=== PATIENT | female | born 1940 | race Caucasian/White ===

== ENCOUNTER → 2020-05-27 10:59 | Outpatient (CLI) | payer MEDICARE, SELFPAY ==
--- NOTE | ~2020-05-27 | MM_ITS ---
EXAMINATION: MM screening [facility] BI w kris HISTORY: Screening mammogram TECHNIQUE: Craniocaudal and mediolateral oblique 3-D tomosynthesis images were obtained and synthetic 2-D images were generated. CAD analysis was submitted and interpreted. COMPARISON: 10/31/2018, 10/09/2017, 10/05/2016 BREAST PARENCHYMAL COMPOSITION: The breasts are heterogeneously dense, which may obscure small masses . FINDINGS: There is no evidence of suspicious mass, calcification, or architectural distortion to sugg est malignancy in either breast. There has been no suspicious interval change. IMPRESSION: 1. No mammographic evidence of malignancy. 2. Recommend routine screening mammography in one year. BI-RADS Category 1: Negative Reviewed, dictated and finalized at location A.
== END ==
PROVIDERS: PCP Family Medicine; Visit Provider Family Medicine
DX: Z12.31 Encounter for screening mammogram for malignant neoplasm of breast (principal)
CPT/HCPCS: 77063; 77067

== ENCOUNTER 2020-07-02 11:50 | Emergency (ER) | payer MEDICARE, SELFPAY ==
[2020-07-02 11:59] VITALS: BP 151/80; PULSE 72; RESP 20; TEMP 36.8; O2SAT 98
--- NOTE | 2020-07-02 12:02 | ED.URI ---
HPI - URI/Sore Throat General Chief Complaint: Upper Respiratory Infection Stated Complaint: sinus issues Time Seen by Provider: 07/02/20 12:03 Source: patient and RN notes reviewed Mode of arrival: ambulatory Limitations: no limitations History of Present Illness HPI Narrative: 80-year-old female who presents to [facility] with complaints of sinus congestion and drainage for one week duration, has been taking Alida D for her symptoms with no improvement,also has had cold sores to her bottle lip for the past 3-4 days. She states that she woke up this morning with right ear pain which she rates as 4/10 constant ache.Patient denies any drainage from her ear or acute changes in hearing, tragal tenderness present. Patient has history of seasonal allergies. MD elicited complaint: rhinorrhea, nasal congestion and other (ear pain, cold sores) Pertinent past history: seasonal allergies Onset (ago): week(s) (1week sinus symptoms,3-4 days cold sores ,one day right ear pain) Consistency: progressively worsening Severity: moderate Pain scale (0-10): 4 Description of mucous: clear Able to tolerate fluids by mouth: Yes Exacerbating factors: nothing Relieving factors: nothing Associated symptoms: rhinorrhea, nasal congestion, ear pain and other Treatments prior to arrival: cold medicine and other (topical lip treatment) Related Data Home Medications Medication Instructions Recorded Confirmed fexofenadine-pseudoephedrine 1 tablet PO QAM 07/02/20 07/02/20 [Alida-D 24 Hour] Allergies Allergy/AdvReac Type Severity Reaction Status Date / Time No Known Allergies Allergy Verified 07/02/20 12:04 Review of Systems Review of Systems: Narrative: CONSTITUTIONAL: Denies fever, chills, or sweats. EYES: Denies visual changes, redness, or discharge. ENT: positive rhinorrhea, congestion, no sore throat, right otalgia, cold sores bottom lip CARDIOVASCULAR: Denies chest pain, palpitations, or edema. RESPIRATORY: Denies cough or dyspnea. GASTROINTESTINAL: Denies abdominal pain, nausea, vomiting, or diarrhea. GENITOURINARY: Denies dysuria or hematuria. SKIN: Denies rash or itching. MUSCULOSKELETAL: Denies back pain, joint pain, or myalgia. NEUROLOGIC: Denies headache, numbness, or weakness. PSYCHIATRIC: Denies anxiety or depression. All systems reviewed & are unremarkable except as noted in HPI and below PMFSH Past Medical History Medical History Allergies Diverticulosis Dyslipidemia Elevated cholesterol Hypothyroidism (acquired) Osteopenia Pre-diabetes Unspecified osteoarthritis, unspecified site Vitamin D deficiency Surgical History Surgical History H/O total hysterectomy age 36 History of knee replacement (~2017) right [place] teeth extracted Family History Family History Mother Leukemia Sibling Brain tumor Social History Social History Smoking status: Never smoker Second hand tobacco smoke exposure: No Alcohol intake: current Substance use: never Substance use type: does not use Gender identity (if verbalized by the patient): Female Comments At time of signature, agree with nursing past medical, surgical, social and family history. There is no relevant family history pertinent to the presenting complaint Exam Narrative: Exam Narrative: GENERAL: Well-appearing, well-nourished, and in no acute distress. HEAD: Normocephalic, atraumatic. EYES: PERRLA and EOMI. ENT: Nares red, clear rhinorrhea no epistaxis. Mucous membranes moist. Right TM red with bulging noted no drainage, left TM normal with adequate drainage Throat has mild redness with post nasal drainage noted, no exudates or tonsil enlargement. NECK: Supple.no lymphadenopathy CHEST: Clear to auscultation. No respiratory distress.SAO2
== END 2020-07-02 12:41 | disposition home or self-care (01) ==
PROVIDERS: Emergency Provider Registered Nurse; PCP Family Medicine
DX: B00.1 Herpesviral vesicular dermatitis (principal); H65.01 Acute serous otitis media, right ear; J06.9 Acute upper respiratory infection, unspecified; E78.5 Hyperlipidemia, unspecified; E78.00 Pure hypercholesterolemia, unspecified; M85.80 Other specified disorders of bone density and structure, unspecified site; R73.03 Prediabetes; M19.90 Unspecified osteoarthritis, unspecified site; Z96.651 Presence of right artificial knee joint
CPT/HCPCS: 99213; G0463

== ENCOUNTER 2020-07-05 11:46 | Emergency (ER) | payer MEDICARE, SELFPAY ==
--- NOTE | 2020-07-05 11:50 | ED.GENADULT ---
HPI - General Adult General Chief complaint: Skin/Abscess/Foreign Body Stated complaint: Rash Time Seen by Provider: 07/05/20 11:49 Source: patient Mode of arrival: ambulatory Limitations: no limitations History of Present Illness HPI narrative: 80-year-old female patient presents to the [facility] with complaints of a rash to the right side of her face. Patient states she was seen here 3 days ago with complaints of right-sided ear pain as well as a rash that started to her bottom lip. Patient was treated for an ear infection with antibiotics as well as antivirals for cold sores to her lip. Patient states that the pain in her ear is gone since starting the antibiotics and antivirals. Patient denies any pain to the side of the face but states that the rash that looks similar to her cold sores on her lip has spread to the right side of her face. Denies any vision changes. Denies any rash around the eye. Denies any rash to the tip of the nose that she is aware of. Patient states she has had shingles before in the past but was under her left breast the last time. Patient states she has been nervous and anxious recently. Patient denies any fevers, body aches or chills. Denies any chest pain or shortness of breath Related Data Home Medications Medication Instructions Recorded Confirmed fexofenadine-pseudoephedrine 1 tablet PO QAM 07/02/20 07/02/20 [Alida-D 24 Hour] Allergies Allergy/AdvReac Type Severity Reaction Status Date / Time No Known Allergies Allergy Verified 07/02/20 12:04 Review of Systems Review of Systems: Narrative: CONSTITUTIONAL: Denies fever, chills, or sweats. EYES: Denies visual changes, redness, or discharge. ENT: Denies rhinorrhea, congestion, sore throat, or otalgia. CARDIOVASCULAR: Denies chest pain, palpitations, or edema. RESPIRATORY: Denies cough or dyspnea. GASTROINTESTINAL: Denies abdominal pain, nausea, vomiting, or diarrhea. GENITOURINARY: Denies dysuria or hematuria. SKIN: Positive rash to right side of face MUSCULOSKELETAL: Denies back pain, joint pain, or myalgia. NEUROLOGIC: Denies headache, numbness, or weakness. PSYCHIATRIC: Denies anxiety or depression. [facility] Past Medical History Medical History Allergies Diverticulosis Dyslipidemia Elevated cholesterol Hypothyroidism (acquired) Osteopenia Pre-diabetes Unspecified osteoarthritis, unspecified site Vitamin D deficiency Surgical History Surgical History H/O total hysterectomy age 36 History of knee replacement (~2017) right [place] teeth extracted Family History Family History Mother Leukemia Sibling Brain tumor Social History Social History Smoking status: Never smoker Second hand tobacco smoke exposure: No Alcohol intake: current Substance use: never Substance use type: does not use Gender identity (if verbalized by the patient): Female Comments At the time of my signature I agree with nursing past medical history, surgical, social, and family history. There is no relevant family history pertinent to the presenting complaint. Exam Narrative: Exam Narrative: GENERAL: Well-appearing, well-nourished, and in no acute distress. HEAD: Normocephalic, atraumatic. EYES: PERRLA and EOMI. ENT: Nares clear, no rhinorrhea or epistaxis. Mucous membranes moist. Posterior pharynx with no erythema, tonsil enlargement, exudates or lesions present. There is an apophcus ulcer noted to the right side of the posterior pharynx. Bilateral TMs are clear no erythema or foreign bodies in the canal. NECK: Supple. No lymphadenopathy CHEST: Clear to auscultation. No respiratory distress. HEART: Regular rate and rhythm. No murmur heard. Normal peripheral pulses. ABDOMEN: Soft, nontender, nondistended, no
[2020-07-05 12:01] VITALS: BP 162/95; PULSE 116; RESP 20; TEMP 36.6; O2SAT 98
== END 2020-07-05 12:22 | disposition home or self-care (01) ==
PROVIDERS: Emergency Provider Nurse Practitioner Family; PCP Family Medicine
DX: B02.9 Zoster without complications (principal); E78.5 Hyperlipidemia, unspecified; E78.00 Pure hypercholesterolemia, unspecified; E03.9 Hypothyroidism, unspecified; M85.80 Other specified disorders of bone density and structure, unspecified site; M19.90 Unspecified osteoarthritis, unspecified site; E55.9 Vitamin D deficiency, unspecified; R73.03 Prediabetes
CPT/HCPCS: 99211; G0463

== ENCOUNTER → 2020-12-24 14:53 | Outpatient (CLI) | payer MEDICARE, SELFPAY ==
--- NOTE | ~2020-12-24 | MR_ITS ---
EXAMINATION: MR knee LT wo con DATE: 12/24/2020 15:33 INDICATION: Acute left knee pain. TECHNIQUE: Magnetic resonance imaging (MRI) of the left knee was performed without intravenous contra st. Sequences included axial PD-weighted FS FSE, coronal PD-weighted FSE and PD-weighted FS FSE, sagi ttal PD-weighted FSE, and sagittal T2-weighted FS FSE. COMPARISON: None. FINDINGS: Medial compartment: There is an undersurface horizontal tear of body of medial meniscus. There is extensive deep partial thickness cartilage loss of tibial condyle and femoral condyle. There is mild subchondral edema-like signal intensity in tibial condyle medially. Lateral compartment: Lateral meniscus is normal. There is extensive partial thickness cartilage loss of tibial condyle, de ep at the medial and lateral aspects of the articular surface. There is extensive shallow partial-thi ckness cartilage loss of femoral condyle. Patellofemoral compartment: There is extensive deep partial thickness cartilage loss of the patella and trochlea. Ligaments and tendons: The anterior and posterior cruciate ligaments are normal. There is edema around the medial collateral ligament, consistent with mild sprain. There are changes of prior sprain of fibular collateral ligam ent characterized by thickening and increased signal intensity. There is mild patellar tendinopathy. Fluid: There is a small knee joint effusion. IMPRESSION: 1. Moderate tricompartmental chondrosis. 2. Tear of medial meniscus. 3. Mild sprain of medial collateral ligament (grade 1). 4. Small knee joint effusion. Reviewed, dictated and finalized at location A. 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
== END ==
PROVIDERS: PCP Family Medicine
DX: M25.562 Pain in left knee (principal); M22.2X2 Patellofemoral disorders, left knee; S83.242A Other tear of medial meniscus, current injury, left knee, initial encounter; S83.412A Sprain of medial collateral ligament of left knee, initial encounter; M25.462 Effusion, left knee
CPT/HCPCS: 73721

== ENCOUNTER → 2021-06-01 16:14 | Outpatient (CLI) | payer MEDICARE, SELFPAY ==
--- NOTE | ~2021-06-01 | MM_ITS ---
EXAMINATION: MM screening [facility] BI w kris HISTORY: Screening mammogram TECHNIQUE: Craniocaudal and mediolateral oblique 3-D tomosynthesis images were obtained and synthetic 2-D images were generated. CAD analysis was submitted and interpreted. COMPARISON: No prior mammogram is available for comparison at this institution. BREAST PARENCHYMAL COMPOSITION: The breasts are heterogeneously dense, which may obscure small masses . FINDINGS: There is no evidence of suspicious mass, calcification, or architectural distortion to sugg est malignancy in either breast. There has been no suspicious interval change. IMPRESSION: 1. No mammographic evidence of malignancy. 2. Recommend routine screening mammography in one year. BI-RADS Category 1: Negative Reviewed, dictated and finalized at location A.
== END ==
PROVIDERS: PCP Family Medicine; Visit Provider Family Medicine
DX: Z12.31 Encounter for screening mammogram for malignant neoplasm of breast (principal)
CPT/HCPCS: 77063; 77067

== ENCOUNTER → 2021-08-26 10:59 | Outpatient (CLI) | payer MEDICARE, SELFPAY ==
--- NOTE | ~2021-08-26 | DEXA_ITS ---
Bone Density Report Name: Mariama Reina Age: 81 Sex: Female Ethnicity: White Date of : 1940 Indication: osteopenia; height loss; hysterectomy; postmenopausal Referring Provider: Prachi Mejía Study: Bone densitometry was performed. Exam Date: August 26, 2021 Accession number: [id number] Bone Density: Region BMD T-score Z-score Classification AP Spine (L1, L2) 0.920 -0.5 2.0 Normal Femoral Neck (Left) 0.637 -1.9 0.4 Osteopenia Total Hip (Left) 0.815 -1.0 1.0 Normal Femoral Neck (Right) 0.600 -2.2 0.0 Osteopenia Total Hip (Right) 0.740 -1.7 0.4 Osteopenia Total Hip Mean 0.778 -1.4 0.7 Osteopenia World Health Organization criteria for BMD impression classify patients as: Normal (T-score at or above -1.0), Osteopenia (T-score between -1.0 and -2.5), or Osteoporosis (T-score at or below -2.5). 10-year Fracture Risk(1): Major Osteoporotic Fracture 17% Hip Fracture 5.3% Reported Risk Factors: [place] (), Neck BMD=0.600, BMI=26.9 (1) FRAX(R) Version 3.08. Fracture probability calculated for an untreated patient. Fracture probability may be lower if the patient has received treatment. Previous Exams: Region Exam Age BMD T-score BMD Change BMD Change Date g/cm2 vs Baseline vs Previous AP Spine(L1, L2) 08/26/2021 81 0.920 -0.5 0.081* 0.065* 04/20/2018 78 0.855 -1.1 0.015 0.058* 08/01/2011 71 0.797 -1.7 -0.042* -0.042* 07/17/2009 69 0.839 -1.3 Total Hip(Left) 08/26/2021 81 0.815 -1.0 0.031* 0.013 04/20/2018 78 0.802 -1.1 0.018 0.024 08/01/2011 71 0.777 -1.3 -0.006 -0.006 07/17/2009 69 0.783 -1.3 Total Hip(Right) 08/26/2021 81 0.740 -1.7 -0.008 0.032* 04/20/2018 78 0.708 -1.9 -0.040* -0.035* 08/01/2011 71 0.743 -1.6 -0.005 -0.005 07/17/2009 69 0.748 -1.6 *Denotes significance at 95% confidence level, LSC for AP Spine = 0.022 g/cm2, LSC for Total Hip = 0.027 g/cm2 Clinical Information Provided by Patient: Has used the following medications: Vitamin D, Calcium, LEVOTHYROXINE Has the following medical conditions: Hysterectomy Patient maximum height was 64.0 Menopause Age: 38 Drinks caffeinated beverages Onset of menses at age 16 Number of children 2 Impression: The patient has low bone mass, based on
== END ==
PROVIDERS: PCP Family Medicine; Visit Provider Nurse Practitioner Family
DX: Z78.0 Asymptomatic menopausal state (principal); M85.851 Other specified disorders of bone density and structure, right thigh; M85.852 Other specified disorders of bone density and structure, left thigh
CPT/HCPCS: 77080

== ENCOUNTER 2022-06-16 09:59 | Outpatient (CLI) | payer MEDICARE, SELFPAY ==
[2022-06-16 19:38] LABS: Basophils Absolute Auto 0.1 K/mm3 (0.0-0.1); Basophils Percent Auto 0.8 % (0.2-1.2); Eosinophils Absolute Auto 0.2 K/mm3 (0-0.3); Eosinophils Percent Auto 2.9 % (0-4.4); Hematocrit 38.2 % (37.0-47.0); Hemoglobin 12.5 g/dL (12.0-15.0); Immature Granulocyte Absolute 0.06 K/mm3 (0.00-0.031); Lymphocytes Percent Auto 28.7 % (18.3-44.2); Mean Corpuscular HGB Conc 32.7 g/dl (32-36); Mean Corpuscular Volume 88.6 fl (80-100); Mean Platelet Volume 8.9 fl (7.4-10.4); Monocytes Absolute Auto 0.6 K/mm3 (0.1-0.6); Monocytes Percent Auto 10.6 % (2.6-8.5); Neutrophils Absolute Auto 3.3 K/mm3 (1.3-6.7); Platelet Count Result 292 k/mm3 (150-375); Red Blood Count 4.31 M/mm3 (4.2-5.4); Red Cell Distribution Width 13.2 % (11.5-14.5); White Blood Count 5.9 K/mm3 (4.5-10.0)
[2022-06-16 19:45] LABS: Alanine Aminotransferase 18 U/L (6-35); Albumin Level 4.6 g/dL (3.5-5.1); Alkaline Phosphatase 71 U/L (38-126); Anion Gap 10 mmol/L (8-16); Aspartate Amino Transferase 36 U/L (14-36); Bilirubin,Total 0.5 mg/dL (0.2-1.3); Blood Urea Nitrogen 18 mg/dL (7-17); Calcium 9.5 mg/dL (8.4-10.2); Carbon Dioxide 25 mmol/L (22-30); Chloride 104 mmol/L (98-107); Cholesterol 189 mg/dL (0-200); Estimated Glomerular Filt Rate > 60; Glucose 100 mg/dL (65-110); HDL Direct 39 mg/dL; Potassium 4.4 mmol/L (3.4-5.0); Sodium 139 mmol/L (137-145); Triglycerides 225 mg/dL (<150)
[2022-06-16 19:56] LABS: LDL Cholesterol Direct 83 mg/dL
== END 2022-06-16 10:00 | disposition home or self-care (01) ==
LOC: ANHGOSHLAB 10:03
PROVIDERS: PCP Family Medicine; Visit Provider Nurse Practitioner Family
DX: E78.5 Hyperlipidemia, unspecified (principal); I10 Essential (primary) hypertension
CPT/HCPCS: 36415; 80053; 80061; 84443; 85025

== ENCOUNTER → 2022-08-12 12:12 | Outpatient (CLI) | payer MEDICARE, SELFPAY ==
--- NOTE | ~2022-08-12 | MM_ITS ---
EXAMINATION: MM screening [facility] BI w kris HISTORY: Screening mammogram TECHNIQUE: Craniocaudal and mediolateral oblique 3-D tomosynthesis images were obtained and synthetic 2-D images were generated. CAD analysis was submitted and interpreted. COMPARISON: 06/01/2021, 05/27/2020, 10/31/2018 BREAST PARENCHYMAL COMPOSITION: The breasts are heterogeneously dense, which may obscure small masses . FINDINGS: There is no suspicious mass, calcification, or architectural distortion to suggest malignan cy in either breast. There has been no suspicious interval change. IMPRESSION: 1. No mammographic evidence of malignancy. 2. Recommend routine screening mammography in one year. BI-RADS Category 1: Negative Reviewed, dictated and finalized at location A.
== END ==
PROVIDERS: PCP Family Medicine; Visit Provider Family Medicine
DX: Z12.31 Encounter for screening mammogram for malignant neoplasm of breast (principal)
CPT/HCPCS: 77063; 77067

== ENCOUNTER → 2023-10-26 11:00 | Outpatient (CLI) | payer MEDICARE, SELFPAY ==
--- NOTE | ~2023-10-26 | MM_ITS ---
EXAMINATION: MM screening [facility] BI w kris HISTORY: Screening mammogram TECHNIQUE: Craniocaudal and mediolateral oblique 3-D tomosynthesis images were obtained and synthetic 2-D images were generated. CAD analysis was submitted and interpreted. COMPARISON: 08/12/2022, 06/01/2021, 05/27/2020 BREAST PARENCHYMAL COMPOSITION: The breasts are heterogeneously dense, which may obscure small masses . FINDINGS: No suspicious mass, calcification, or architectural distortion are identified in either sarah ast to suggest malignancy. There has been no suspicious interval change. IMPRESSION: 1. No mammographic evidence of malignancy. 2. Recommend routine screening mammography while the patient remains in good health. BI-RADS Category 1: Negative Reviewed, dictated and finalized at location A. 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 No mammographic evidence of malignancy. 2. Recommend routine screening mammography while the patient remains in good he alth. BI-RADS Category 1: Negative
--- NOTE | ~2023-10-26 | DEXA_ITS ---
Bone Density Report Name: QUITA IBARRA Age: 83 Sex: Female Ethnicity: White Date of : 1940 Indication: osteopenia; height loss; prior fracture; hysterectomy; postmenopausal Referring Provider: LILIA PORRAS Study: Bone densitometry was performed. Exam Date: October 26, 2023 Accession number: [id number] Bone Density: Region BMD T-score Z-score Classification AP Spine (L1, L2) 0.968 -0.1 2.5 Normal Femoral Neck (Left) 0.620 -2.1 0.3 Osteopenia Total Hip (Left) 0.823 -1.0 1.2 Normal Femoral Neck (Right) 0.593 -2.3 0.1 Osteopenia Total Hip (Right) 0.732 -1.7 0.4 Osteopenia Total Hip Mean 0.778 -1.4 0.8 Osteopenia World Health Organization criteria for BMD impression classify patients as: Normal (T-score at or above -1.0), Osteopenia (T-score between -1.0 and -2.5), or Osteoporosis (T-score at or below -2.5). 10-year Fracture Risk(1): Major Osteoporotic Fracture 24% Hip Fracture 7.3% Reported Risk Factors: [place] (), Neck BMD=0.593, BMI=27.6, previous fracture (1) FRAX(R) Version 3.08. Fracture probability calculated for an untreated patient. Fracture probability may be lower if the patient has received treatment. Previous Exams: Region Exam Age BMD T-score BMD Change BMD Change Date g/cm2 vs Baseline vs Previous AP Spine(L1, L2) 10/26/2023 83 0.968 -0.1 0.129* 0.049* 08/26/2021 81 0.920 -0.5 0.081* 0.065* 04/20/2018 78 0.855 -1.1 0.015 0.058* 08/01/2011 71 0.797 -1.7 -0.042* -0.042* 07/17/2009 69 0.839 -1.3 Total Hip(Left) 10/26/2023 83 0.823 -1.0 0.040* 0.009 08/26/2021 81 0.815 -1.0 0.031* 0.013 04/20/2018 78 0.802 -1.1 0.018 0.024 08/01/2011 71 0.777 -1.3 -0.006 -0.006 07/17/2009 69 0.783 -1.3 Total Hip(Right) 10/26/2023 83 0.732 -1.7 -0.016 -0.008 08/26/2021 81 0.740 -1.7 -0.008 0.032* 04/20/2018 78 0.708 -1.9 -0.040* -0.035* 08/01/2011 71 0.743 -1.6 -0.005 -0.005 07/17/2009 69 0.748 -1.6 *Denotes significance at 95% confidence level, LSC for AP Spine = 0.022 g/cm2, LSC for Total Hip = 0.027 g/cm2 Clinical Information Provided by Patient: Has had a low trauma fracture Has used the following medications: Vitamin D, Calcium, LEVOTHYROXINE Has the following medical conditions: Hyst
== END ==
PROVIDERS: PCP Nurse Practitioner Family; Visit Provider Nurse Practitioner Family
DX: Z12.31 Encounter for screening mammogram for malignant neoplasm of breast (principal); Z78.0 Asymptomatic menopausal state; M85.89 Other specified disorders of bone density and structure, multiple sites
CPT/HCPCS: 77063; 77067; 77080

== ENCOUNTER → 2023-12-12 10:42 | Outpatient (CLI) | payer MEDICARE, SELFPAY ==
--- NOTE | ~2023-12-12 | XR_ITS ---
EXAMINATION: XR_CERV2-3V_CR DATE: 12/12/2023 11:22 INDICATION: Neck pain. Fall. TECHNIQUE: 4 views of cervical spine were obtained. COMPARISON: None. FINDINGS: There is 2 mm anterolisthesis of C4 on C5 and 2 mm retrolisthesis of C5 on C6. Vertebral yasmin dy heights are normal. There is mildly decreased disc height at C4-C5 and severely decreased disc hei ght at C5-C6 and C6-C7. There is multilevel facet joint osteoarthritis, moderate on the left at C4-C5 . There is multilevel uncovertebral joint osteoarthritis, severe bilaterally at C5-C6 and C6-C7. Ther e is mild central canal stenosis. C5-C6 and C6-C7. No prevertebral soft tissue swelling. IMPRESSION: 1. Severe cervical spondylosis. Reviewed, dictated and finalized at location E. OBJECTS REPAIRER
== END ==
PROVIDERS: PCP Nurse Practitioner Family; Visit Provider Nurse Practitioner Family
DX: M43.02 Spondylolysis, cervical region (principal); W19.XXXA Unspecified fall, initial encounter; W22.09XA Striking against other stationary object, initial encounter
CPT/HCPCS: 72040

== ENCOUNTER 2023-12-12 11:42 | Emergency (ER) | payer MEDICARE, SELFPAY ==
[2023-12-12] VITALS (13 sets, daily range): BP systolic 115–158; BP diastolic 73–99; PULSE 84–155; RESP 12–20; TEMP 36.6; O2SAT 96–100
--- NOTE | ~2023-12-12 | XR_ITS ---
XR chest 2V 12/12/2023 12:21 Indication: New onset of A. Fib Procedure: PA and lateral views the chest Comparison: No prior studies for comparison. Findings: Heart size normal. There is a hiatal hernia. There is right basilar atelectasis/scarring. N o focal pneumonia, edema or effusion. The lungs are hyperinflated which is consistent with, but not d iagnostic of chronic obstructive pulmonary disease. There is apical pleural thickening/scarring. Impression: 1: Right basilar atelectasis/scarring, likely chronic. 2: Hiatal hernia. Reviewed, dictated and finalized at location L. E EDUCATOR Impression: 1: Right basilar atelectasis/scarring, likely chronic. 2: Hiatal hernia.
--- NOTE | 2023-12-12 11:45 | ECG_ITS ---
Measurements Intervals [place] Rate: 153 P: [place]: 0 QRS: 33 QRSD: 78 T: 97 QT: 279 QTc: 445 Interpretive Statements ATRIAL FIBRILLATION WITH RAPID VENTRICULAR RESPONSE CANNOT RULE OUT SEPTAL INFARCT, AGE INDETERMINATE BORDERLINE ST-T WAVE ABNORMALITY- DIFFUSE LEADS BASELINE ARTIFACT- I, III, AVR, AVL, AVF ABNORMAL ECG NO PREVIOUS ECG AVAILABLE FOR COMPARISON Electronically Signed On 12-12-2023 12:52:44 DIANETIC COUNSELOR by Vishnu Burgess D.O.
[2023-12-12] MEDS: ASPIRIN 81 MG CHEWABLE TABLET 324 MG PO (12:39)
[2023-12-12 12:49] LABS: Basophils Percent Auto 0.4 % (0.2-1.2); Eosinophils Absolute Auto 0.1 K/mm3 (0-0.3); Eosinophils Percent Auto 0.8 % (0-4.4); Immature Granulocyte Absolute 0.07 K/mm3 (0.00-0.031); Lymphocytes Absolute Auto 1.47 K/mm3 (0.9-3.2); Lymphocytes Percent Auto 20.1 % (18.3-44.2); Mean Corpuscular HGB Conc 32.5 g/dl (32-36); Mean Corpuscular Hemoglobin 28.6 pg (26-34); Mean Corpuscular Volume 88.1 fl (80-100); Mean Platelet Volume 8.9 fl (7.4-10.4); Monocytes Absolute Auto 0.7 K/mm3 (0.1-0.6); Monocytes Percent Auto 9.5 % (2.6-8.5); Neutrophils Percent Auto 68.2 % (45.5-73.1); Platelet Count Result 291 k/mm3 (150-375); Red Blood Count 4.54 M/mm3 (4.2-5.4); Red Cell Distribution Width 13.5 % (11.5-14.5); White Blood Count 7.3 K/mm3 (4.5-10.0)
[2023-12-12 13:00] LABS: Partial Thromboplastin Time 26.6 SECONDS (22.3-36.8); Prothrombin Time 13.4 Seconds (11.1-14.7)
[2023-12-12 13:05] LABS: Alanine Aminotransferase 15 U/L (6-35); Albumin Level 4.6 g/dL (3.5-5.1); Alkaline Phosphatase 77 U/L (38-126); Anion Gap 10 mmol/L (8-16); Aspartate Amino Transferase 26 U/L (14-36); Bilirubin,Total 0.7 mg/dL (0.2-1.3); Blood Urea Nitrogen 16 mg/dL (7-17); Calcium 9.9 mg/dL (8.4-10.2); Carbon Dioxide 21 mmol/L (22-30); Chloride 106 mmol/L (98-107); Estimated CRCL calculation 49 ml/min; Estimated Glomerular Filt Rate > 60; Glucose 112 mg/dL (65-110); Lipase 51 U/L (23-300); Potassium 4.5 mmol/L (3.4-5.0); Sodium 137 mmol/L (137-145)
[2023-12-12 13:15] LABS: Troponin I < 0.012 ng/mL (0.000-0.034)
--- NOTE | 2023-12-12 13:55 | ED.ARRPALP ---
HPI - Arrhythmia/Palpitations General Chief Complaint: Arrhythmia/Palpitations Stated Complaint: afib rvr Time Seen by Provider: 12/12/23 13:51 Source: patient Mode of arrival: ambulatory Limitations: no limitations History of Present Illness HPI narrative: Patient presents from PCP office. She was presenting there because a few days ago she accidentally struck her head on the refrigerator and had been having neck pain. While being evaluated, a EKG was performed which demonstrated patient was in AFib with RVR. No previous history. pt denies chest pain, difficulty breathing, palpitations/missed beats/racing sensation. Has otherwise been feeling well in baseline state of health without fevers, cough, diarrhea. Lives by herself, independent. No previous diagnosis of HTN, not on any cardiac medications (only a statin and levothyroxine). Does not follow with a circulation clerk, no cardiac history. Related Data Home Medications Medication Instructions Recorded Confirmed calcium citrate 1,000 mg tablet 1,000 mg PO BID 11/30/20 12/12/23 cholecalciferol (vitamin D3) 50 50 mcg PO DAILY 11/30/20 12/12/23 mcg (2,000 unit) capsule Allergies Allergy/AdvReac Type Severity Reaction Status Date / Time No Known Allergies Allergy Verified 12/12/23 09:51 [facility] Past Medical History Medical History Diverticulosis Dyslipidemia Environmental allergies Hypothyroidism (acquired) Osteopenia Pre-diabetes Unspecified osteoarthritis, unspecified site Vitamin D deficiency Surgical History Surgical History H/O total hysterectomy (~1975) age 36 History of knee replacement (~2017) right [place] teeth extracted (~1966) Family History Family History Mother Leukemia Sibling Brain tumor Social History Social History Smoking status: Never smoker Second hand tobacco smoke exposure: No Alcohol intake: current Alcohol use details: consumes 1 glass of wine occasionally Substance use: never Substance use type: does not use Lack of Transportation: No Lack of Food: Never True Current Housing: I Have Housing Concerned About Future Housing: No Difficulty Paying Gas/Electric Bills: No Difficulty Paying for Meds: No Currently Unemployed: No Difficulty w/ Childcare or Family Care: No Living arrangements: alone Occupation/Education: retired Gender identity (if verbalized by the patient): Female Agree to blood products: Yes Exam Narrative: GENERAL: Well-appearing, well-nourished, and in no acute distress. HEAD: Normocephalic, atraumatic. EYES: Non injected, non icteric ENT: Nares clear, no rhinorrhea or epistaxis. NECK: Supple. CHEST: Clear to auscultation. No respiratory distress. HEART: Initially irregularly irregular rate and rhythm . Palpable radial pulses ABDOMEN: Soft, nondistended. EXTREMITIES: Normal range of motion. No edema. SKIN: Warm, dry, no rash. NEURO: No focal deficits. Alert and oriented x3. PSYCH: Normal mood and affect. Course Vital Signs Vital signs: Vital Signs Temperature 97.9 F 12/12/23 11:45 Pulse Rate 144 H 12/12/23 11:45 Respiratory Rate 16 12/12/23 11:45 Blood Pressure 115/73 12/12/23 11:45 Pulse Oximetry 97 12/12/23 11:45 Oxygen Delivery Room Air 12/12/23 11:45 Temperature 97.9 F 12/12/23 11:45 Pulse Rate 94 12/12/23 16:33 Respiratory Rate 14 12/12/23 16:27 Blood Pressure 158/88 H 12/12/23 16:27 Pulse Oximetry 100 12/12/23 16:27 Oxygen Delivery Room Air 12/12/23 11:45 MDM - Arrhythmia/Palpitations MDM Narrative Medical decision making narrative: Patient does present with an EKG from primary care physician's office today which showed An irregularly irregular rhythm consistent with atrial fib
--- NOTE | 2023-12-12 14:45 | ECG_ITS ---
Measurements Intervals [place] Rate: 85 P: 52 FL: 183 QRS: 9 QRSD: 77 T: 61 QT: 340 QTc: 404 Interpretive Statements SINUS RHYTHM POSSIBLE LEFT ATRIAL ENLARGEMENT LOW QRS VOLTAGE IN PRECORDIAL LEADS BORDERLINE ECG COMPARED TO ECG 12/12/2023 12:14:14 SINUS RHYTHM NOW PRESENT Electronically Signed On 12-12-2023 15:05:03 TUNNEL INSPECTOR by Vishnu Burgess D.O.
[2023-12-12 16:22] LABS: Troponin I < 0.012 ng/mL (0.000-0.034)
[2023-12-12] MEDS: APIXABAN 5 MG TABLET PO (16:32)
[2023-12-12] MEDS: METOPROLOL TARTRATE 50 MG TAB 25 MG PO (16:33)
== END 2023-12-12 16:46 | disposition home or self-care (01) ==
PROVIDERS: Emergency Medicine; Emergency Provider Student in an Organized Health Care Education/Training Program; PCP Nurse Practitioner Family
DX: I48.91 Unspecified atrial fibrillation (principal); E78.5 Hyperlipidemia, unspecified; E03.9 Hypothyroidism, unspecified; E55.9 Vitamin D deficiency, unspecified; R73.03 Prediabetes; M85.80 Other specified disorders of bone density and structure, unspecified site; M19.90 Unspecified osteoarthritis, unspecified site; Z90.710 Acquired absence of both cervix and uterus; Z96.651 Presence of right artificial knee joint; K44.9 Diaphragmatic hernia without obstruction or gangrene; R94.31 Abnormal electrocardiogram [ECG] [EKG]
CPT/HCPCS: 36415; 71046; 80053; 83690; 84443; 84484; 85025; 85610; 85730; 93005; 99284; A9270

== ENCOUNTER 2023-12-29 09:37 | Outpatient (RCR) | payer MEDICARE, SELFPAY ==
--- NOTE | 2023-12-29 10:42 | PTOPEVDC ---
Assessment and note entered by Roberto Whitney, PT, DPT Thank you for referring Mariama Reina to [facility].? An evaluation has been completed. No further treatment is needed. Evaluation Information Assessment Status Evaluation Diagnosis cervical spondylosis Subjective Information Pt states she has very little pain, she states she is a little sensitive when she rotates her head side to side. She states she has a recent fall and hit her head on the refrigerator, she states she was concerned she could have injured herself. She has no history of neck pain. She was able to play golf without an increase in pain. Reported Pain Level Pain Score 0: Self Report Assessment PT Clinical Summary Mariama presents to therapy today for her initial evaluation with a diagnosis of cervicalgia. Today she demonstrates functional shoulder ROM and strength, functional cervical ROM, and overall good mobility; all without an increase in pain. She does demonstrates postural deficits noted by forward and rounded shoulders with increased cervical lordosis. She was educated on posture and given a posture focused HEP this date. Skilled therapy services are not indicated and she will be discharged at this time. Plan of Care PT Services Indicated No Treatment Frequency and evaluate and discharge Duration
== END 2023-12-29 11:20 | disposition home or self-care (01) ==
LOC: ANHGOSHPT 09:37
PROVIDERS: PCP Nurse Practitioner Family; Visit Provider Nurse Practitioner Family
DX: M54.2 Cervicalgia (principal)
CPT/HCPCS: 97110; 97161

== ENCOUNTER 2024-07-23 17:35 | Observation (INO) | payer MEDICARE, SELFPAY ==
[2024-07-23] VITALS (20 sets, daily range): BP systolic 125–168; BP diastolic 82–98; PULSE 76–131; RESP 13–21; TEMP 36.4–36.8; O2SAT 96–100; BMI 25.1
--- NOTE | ~2024-07-23 | XR_ITS ---
EXAMINATION: XR chest 2V DATE: 07/23/2024 18:37 INDICATION: Shortness of breath. TECHNIQUE: Frontal and lateral views of the chest were obtained. COMPARISON: Chest 2 views 12/12/2023 FINDINGS: There is mild scarring at the lung apices. No pleural effusion or pneumothorax. The heart s ize is normal. There is a large hiatal hernia. IMPRESSION: 1. Stable mild scarring at the lung apices. 2. Large hiatal hernia. Reviewed, dictated and finalized at location A.
--- NOTE | 2024-07-23 18:05 | ECG_ITS ---
Test Date: 2024-07-23 18:12:49 Measurements Intervals [place] Rate: 133 P: 0 [place]: 0 QRS: 10 QRSD: 84 T: 60 QT: 303 QTc: 452 Interpretive Statements ATRIAL FIBRILLATION WITH RAPID VENTRICULAR RESPONSE DELAYED PRECORDIAL R/S TRANSITION NONSPECIFIC ST & T-WAVE ABNORMALITY- LATERAL LEADS BASELINE ARTIFACT- I, II, III, AVR, AVL, AVF, V1-V2 ABNORMAL ECG No previous ECG available for comparison Electronically Signed On 07-23-2024 19:27:12 CDT by Vishnu Burgess D.O.
[2024-07-23] MEDS: METOPROLOL TARTRATE INJ 5 MG/5 ML VIAL IV PUSH (18:19)
[2024-07-23 18:21] LABS: Basophils Percent Auto 0.1 % (0.2-1.2); Eosinophils Percent Auto 0.1 % (0-4.4); Hematocrit 38.4 % (37.0-47.0); Hemoglobin 12.9 g/dL (12.0-15.0); Immature Granulocyte Absolute 0.03 K/mm3 (0.00-0.031); Immature Granulocyte Percent A 0.4 % (0-0.5); Lymphocytes Percent Auto 25.1 % (18.3-44.2); Mean Corpuscular HGB Conc 33.6 g/dl (32-36); Mean Corpuscular Hemoglobin 29.5 pg (26-34); Mean Corpuscular Volume 87.7 fl (80-100); Mean Platelet Volume 8.7 fl (7.4-10.4); Monocytes Absolute Auto 0.7 K/mm3 (0.1-0.6); Monocytes Percent Auto 10.5 % (2.6-8.5); Neutrophils Absolute Auto 4.3 K/mm3 (1.3-6.7); Neutrophils Percent Auto 63.8 % (45.5-73.1); Platelet Count Result 296 k/mm3 (150-375); Red Blood Count 4.38 M/mm3 (4.2-5.4); Red Cell Distribution Width 13.7 % (11.5-14.5); White Blood Count 6.8 K/mm3 (4.5-10.0)
[2024-07-23] MEDS: LACTATED RINGERS 1,000 ML 999 ML IV CONT (18:24)
[2024-07-23 18:32] LABS: Alanine Aminotransferase 22 U/L (6-35); Albumin Level 4.7 g/dL (3.5-5.1); Alkaline Phosphatase 61 U/L (38-126); Anion Gap 17 mmol/L (4-12); Aspartate Amino Transferase 38 U/L (14-36); Bilirubin,Total 0.6 mg/dL (0.2-1.3); Blood Urea Nitrogen 16 mg/dL (7-17); Calcium 9.9 mg/dL (8.4-10.2); Carbon Dioxide 18 mmol/L (22-30); Chloride 102 mmol/L (98-107); Estimated CRCL calculation 48 ml/min; Estimated Glomerular Filt Rate > 60; Glucose 150 mg/dL (65-110); Potassium 3.6 mmol/L (3.4-5.0); Sodium 137 mmol/L (137-145)
--- NOTE | 2024-07-23 18:49 | ECG_ITS ---
Test Date: 2024-07-23 18:55:28 Measurements Intervals [place] Rate: 94 P: 0 [place]: 0 QRS: 20 QRSD: 84 T: 37 QT: 344 QTc: 431 Interpretive Statements ATRIAL FIBRILLATION LOW QRS VOLTAGE IN PRECORDIAL LEADS BASELINE ARTIFACT- I, II, III, AVR, AVL, AVF ABNORMAL ECG Compared to ECG 07/23/2024 18:12:49 HEART RATE HAS DECREASED Electronically Signed On 07-23-2024 19:28:05 CDT by Vishnu Burgess D.O.
--- NOTE | 2024-07-23 18:54 | ED.GENADULT ---
HPI - General Adult General Chief complaint: Shortness of Breath/Dyspnea Stated complaint: SOB Time Seen by Provider: 07/23/24 18:15 History of Present Illness HPI narrative: 85-year-old female presented emergency department for evaluation for increased generalized weakness. Patient does have history of AFib and does take metoprolol and Eliquis. Patient was recently on a trip in returned on Monday, patient states that multiple people on the trip already test positive for COVID. Patient states after returning she began to have increased generalized weakness. Related Data Home Medications Medication Instructions Recorded Confirmed calcium citrate 1,000 mg tablet 1,000 mg PO HS 11/30/20 07/23/24 cholecalciferol (vitamin D3) 50 50 mcg PO HS 11/30/20 07/23/24 mcg (2,000 unit) capsule loratadine 10 mg tablet 10 mg PO DAILY PRN Sinus Symptoms 07/23/24 07/23/24 simvastatin 80 mg tablet 80 mg PO DAILY 07/23/24 07/23/24 Allergies Allergy/AdvReac Type Severity Reaction Status Date / Time No Known Allergies Allergy Verified 07/23/24 21:49 Review of Systems Review of Systems: All systems reviewed & are unremarkable except as noted in HPI and below PMFSH Past Medical History Medical History Diverticulosis Dyslipidemia Environmental allergies Hypothyroidism (acquired) Osteopenia Pre-diabetes Unspecified osteoarthritis, unspecified site Vitamin D deficiency Surgical History Surgical History H/O total hysterectomy (~1975) age 36 History of knee replacement (~2017) right [place] teeth extracted (~1966) Family History Family History Mother Leukemia Sibling Brain tumor Social History Social History Smoking status: Never smoker Second hand tobacco smoke exposure: No Alcohol intake: current Drinks per week: 1 Alcohol use details: consumes 1 glass of wine occasionally Substance use: never Substance use type: does not use Do You Feel Safe in your Home?: Yes Lack of Transportation: No Lack of Food: Never True Current Housing: I Have Housing Concerned About Future Housing: No Difficulty Paying Gas/Electric Bills: No Difficulty Paying for Meds: No Currently Unemployed: No Education: High School Diploma/GED Difficulty w/ Childcare or Family Care: No Living arrangements: alone Occupation/Education: retired Gender identity (if verbalized by the patient): Female Spiritual care concerns: No Agree to blood products: Yes Exam Narrative: APPEARANCE: Ill-appearing HEAD: normocephalic, atraumatic. EYES: PERRLA/EOMI, conjunctivae clear. NOSE: Normal no drainage EARS:TMS clear with good light reflex. THROAT: Pharynx clear, no exudate. NECK: Supple. No adenopathy, no masses. RESPIRATORY: Airway patent, respirations nonlabored. Clear to auscultation bilaterally, no rales, rhonchi, wheezing. CARDIOVASCULAR: Regular rate and rhythm without murmurs rubs or gallops. ABDOMINAL: Soft, nontender, nondistended, normal bowel sounds MUSCULOSKELETAL: Moves all extremities. Strength/ROM intact, No edema, No calf tenderness. NEURO: Alert. Cranial nerves II through XII intact. Good gait. Good coordination SKIN: Warm, dry. Normal Color Course Course Emergency Course: Patient was admitted to the hospital service. Vital Signs Vital signs: Vital Signs Temperature 97.6 F 07/23/24 17:38 Pulse Rate 83 07/23/24 17:38 Respiratory Rate 16 07/23/24 17:38 Blood Pressure 129/86 07/23/24 17:38 Pulse Oximetry 96 07/23/24 17:38 Oxygen Delivery Room Air 07/23/24 17:38 Temperature 97.6 F 07/23/24 17:38 Pulse Rate 78 07/23/24 21:16 Respiratory Rate 17 07/23/24 21:16 Blood Pressure 168/98 H 07/23/24 21:16 Pulse Oximetry 100 07/23/24 21:16
[2024-07-23 18:57] LABS: Influenza A QL RT-PCR Negative (Negative); Influenza B QL RT-PCR Negative (Negative); RSV RNA, RT-PCR Negative (Negative); SARS-CoV-2 RNA PCR Positive (Negative)
[2024-07-23 20:43] LABS: Magnesium 1.8 mg/dL (1.6-2.3)
[2024-07-23] MEDS: METOPROLOL TARTRATE 25 MG TABLET PO (20:44)
[2024-07-24] VITALS: PULSE 70
--- NOTE | 2024-07-24 02:21 | ADMGEN ---
This patient, Mariama Reina, was admitted to 3 [facility] Surg Room 319-01. Patient/family oriented to hospital policies and general routines including ID bracelet, bed and alarms, visiting hours, pain management, procedures, bathroom and other care routines, personal items, smoking policy, room service/diet, and visiting hours. Information on how to activate the Rapid Response Team has been discussed. Patient/Family are encouraged to report perceived risks to care and to ask questions if they do not understand what they are told or what they should do.
[2024-07-24] MEDS: SODIUM CHLORIDE 0.9% IV 1,000 ML 100 ML IV CONT (02:49)
[2024-07-24] MEDS: MELATONIN 5 MG TABLET PO (03:23)
[2024-07-24 05:40] VITALS: BP 146/79; PULSE 64; RESP 18; TEMP 36.8; O2SAT 98
[2024-07-24] MEDS: LEVOTHYROXINE SODIUM 50 MCG TABLET PO (06:28)
--- NOTE | 2024-07-24 07:29 | PM.IMHP ---
H&P: HPI History of Present Illness Date/Time: 07/24/24 02:00 Chief Complaint: Shortness of breath is worse when trying to lie down Narrative: 84-year-old female with past medical history of paroxysmal atrial fibrillation on Eliquis, hypothyroidism, hyperlipidemia and essential hypertension who presented to the ER with shortness of breath since 07/21/2024. The patient reports that she just got back from a [place] [employer] cruise. Five people out of the group of 6 that traveled all developed COVID symptoms. Patient reports that she initially became fatigued about 5 or 6 days ago. She initially attributed this to increased activity with traveling. However, on Monday she also developed shortness of breath. She denies any associated cough congestion or fever. She did not feel any palpitations. When she arrived to the ER she was found to be in AFib with RVR. She was initially diagnosed with AFib in November I was found incidentally at an outpatient visit at which time her rate was controlled. In the ER she spontaneously converted to sinus rhythm during that visit. She had echocardiogram and Holter monitor with normal EF and mild mitral valve regurgitation. She had Holter my demonstrated paroxysmal AFib less than 1% time. She would have some short pauses with episodes of conversion at which time she was asymptomatic. She has been continued on metoprolol succinate 25 mg p.o. daily. She has been compliant with her metoprolol succinate and Eliquis since that time. In the ER she was noted to be in AFib RVR with rate in the 130s. She received 1 dose of IV metoprolol. The patient a remained in AFib with rate between 90 and 110. I requested the patient received 1 dose of p.o. metoprolol tartrate. Less than an hour after receiving oral supplement patient likely incidentally flipped back into normal sinus rhythm. She did not realize that she was in atrial fibrillation. She denies any lower extremity swelling. Sounds as if she is having some paroxysmal nocturnal dyspnea that is waking her whenever she does get a chance to fall asleep. She reports the symptoms are better when she sits up. She has not been having any fevers, chills, diarrhea, loss of taste or smell which all of her friends have all had since the trip. She states that she does not like the taste of Gatorade but usually makes herself drink Gatorade whenever she goes golfing. She has felt bad enough this last week that she has not went to the golf course. She reports that she has not had much of an appetite over the last several days and subsequently has not had a bowel movement in approximately 3 days. She seems mildly anxious. She reports that her mouth feels dry and her mucous membranes are dry on exam. She is witnessed to be mouth breathing. The patient had converted back to sinus rhythm before her arrival to the medical floor. Review of Systems Review of Systems: 12 systems were reviewed with pertinent positives and negatives per HPI. Except as documented in the HPI, all other systems were reviewed and are negative. [facility] Past Medical History Medical History (Updated 07/24/24 @ 07:56 by Clau Foote DO) Diverticulosis Dyslipidemia Environmental allergies Hypothyroidism (acquired) Osteopenia Paroxysmal atrial fibrillation Pre-diabetes Unspecified osteoarthritis, unspecified site Vitamin D deficiency Surgical History Surgical History H/O total hysterectomy (~1975) age 36 History of knee replacement (~2017) right [place] teeth extracted (~1966) Family History Family History Mother Leukemia Sibling Brain tumor Social History Social History (Updated 07/24/24 @ 07:43 by Clau Foote DO) Social History: The patient reports that she has been since approximately 2001. 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
[2024-07-24 08:00] VITALS: PULSE 61
[2024-07-24] MEDS: SIMVASTATIN 20 MG TABLET 80 MG PO (08:08)
[2024-07-24] MEDS: APIXABAN 5 MG TABLET PO (08:08)
[2024-07-24 08:09] VITALS: PULSE 61
[2024-07-24] MEDS: METOPROLOL SUCCINATE EXT REL 25 MG TABCR PO (08:09)
[2024-07-24 08:55] LABS: Anion Gap 10 mmol/L (4-12); Blood Urea Nitrogen 11 mg/dL (7-17); Calcium 8.9 mg/dL (8.4-10.2); Carbon Dioxide 23 mmol/L (22-30); Chloride 103 mmol/L (98-107); Estimated CRCL calculation 49 ml/min; Estimated Glomerular Filt Rate > 60; Glucose 106 mg/dL (65-110); Potassium 4.1 mmol/L (3.4-5.0); Sodium 136 mmol/L (137-145)
[2024-07-24 09:02] LABS: NT Pro B Type Natriuretic Pept 329 pg/mL (19.9-100)
[2024-07-24] MEDS: REMDESIVIR 200 MG/NS 250 ML 200 MG/250 ML BAG 250 MG IVPB (11:04)
[2024-07-24 12:00] VITALS: PULSE 60
--- NOTE | 2024-07-24 12:23 | PM.DS ---
DS: Admitting Diagnosis Discharge Date 07/24/24 Admitting Diagnosis SOB DS: Discharge Diagnosis Discharge Diagnosis (1) COVID: Code(s): U07.1 - COVID-19 Status: Acute (2) Atrial fibrillation with rapid ventricular response: Code(s): I48.91 - Unspecified atrial fibrillation Status: Acute DS: Summary Hospital Course Hospital Course: 84-year-old female with past medical history of paroxysmal atrial fibrillation on Eliquis, hypothyroidism, hyperlipidemia and essential hypertension who presented to the ER with shortness of breath since 07/21/2024. The patient reports that she just got back from a 2 week [employer] cruise. Five people out of the group of 6 that traveled all developed COVID symptoms. Patient reports that she initially became fatigued about 5 or 6 days ago. She initially attributed this to increased activity with traveling. However, on Monday she also developed shortness of breath. She denies any associated cough congestion or fever. She did not feel any palpitations. When she arrived to the ER she was found to be in AFib with RVR. She was initially diagnosed with AFib in November I was found incidentally at an outpatient visit at which time her rate was controlled. In the ER she spontaneously converted to sinus rhythm during that visit. She had echocardiogram and Holter monitor with normal EF and mild mitral valve regurgitation. She had Holter my demonstrated paroxysmal AFib less than 1% time. She would have some short pauses with episodes of conversion at which time she was asymptomatic. She has been continued on metoprolol succinate 25 mg p.o. daily. She has been compliant with her metoprolol succinate and Eliquis since that time. In the ER she was noted to be in AFib RVR with rate in the 130s. She received 1 dose of IV metoprolol. The patient a remained in AFib with rate between 90 and 110. I requested the patient received 1 dose of p.o. metoprolol tartrate. Less than an hour after receiving oral supplement patient likely incidentally flipped back into normal sinus rhythm. She did not realize that she was in atrial fibrillation. She denies any lower extremity swelling. Sounds as if she is having some paroxysmal nocturnal dyspnea that is waking her whenever she does get a chance to fall asleep. She reports the symptoms are better when she sits up. She has not been having any fevers, chills, diarrhea, loss of taste or smell which all of her friends have all had since the trip. She states that she does not like the taste of Gatorade but usually makes herself drink Gatorade whenever she goes golfing. She has felt bad enough this last week that she has not went to the golf course. She reports that she has not had much of an appetite over the last several days and subsequently has not had a bowel movement in approximately 3 days. She seems mildly anxious. She reports that her mouth feels dry and her mucous membranes are dry on exam. She is witnessed to be mouth breathing. Patient's HR reverted to NSR, and patient not on oxygen. CXR no infiltrates. tolerating diet and self ambulatory. Received one dose of Remdesivir. discharged home, f/u with PCP in 3-5 days. Assessment and plan (1) Paroxysmal atrial fibrillation: Code(s): I48.0 - Paroxysmal atrial fibrillation Status: Acute (2) COVID: Code(s): U07.1 - COVID-19 Status: Acute (3) Orthopnea: Code(s): R06.01 - Orthopnea Status: Acute (4) Hypothyroidism (acquired): Code(s): E03.9 - Hypothyroidism, unspecified Status: Acute (5) Myalgia due to statin: Code(s): M79.10 - Myalgia, unspecified site; T46.6X5A - Adverse effect of antihyperlipidemic and antiarteriosclerotic drugs, initial encounter Status: Acute F/u with PCP in 3- 5 days. Time Spent with Patient Time attestation: Total time spent providing and/or coordinating discharge services: DS: Data Data Completed and Pendi
== END 2024-07-24 13:56 | disposition home or self-care (01) ==
LOC: ANHED 19:34 → ANH3MEDSUR 21:52
PROVIDERS: Admitting Provider Internal Medicine; Emergency Provider Emergency Medicine; PCP Family Medicine; Visit Provider Internal Medicine
DX: U07.1 COVID-19 (principal); I48.0 Paroxysmal atrial fibrillation; R06.02 Shortness of breath; R53.1 Weakness; R06.01 Orthopnea; M79.10 Myalgia, unspecified site; T46.6X5A Adverse effect of antihyperlipidemic and antiarteriosclerotic drugs, initial encounter; I10 Essential (primary) hypertension; E78.5 Hyperlipidemia, unspecified; E03.9 Hypothyroidism, unspecified; E55.9 Vitamin D deficiency, unspecified; Z79.01 Long term (current) use of anticoagulants
CPT/HCPCS: 36415; 71046; 80048; 80053; 83735; 83880; 85025; 87637; 93005; 96361; 96365; 96374; 96375; 99285; A9270; G0378; J0248; J7030; J7120

== ENCOUNTER 2024-11-21 11:25 | Outpatient (CLI) | payer MEDICARE, SELFPAY ==
--- NOTE | ~2024-11-21 | MM_ITS ---
EXAMINATION: MM screening mekhi BI w kris HISTORY: Screening mammogram TECHNIQUE: Craniocaudal and mediolateral oblique 3-D tomosynthesis images were obtained and synthetic 2-D images were generated. CAD analysis was submitted and interpreted. COMPARISON: 10/26/2023, 08/12/2022, 06/01/2021 BREAST PARENCHYMAL COMPOSITION:Dense: The breasts are heterogeneously dense, which may obscure small masses. FINDINGS: No suspicious mass, calcification, or architectural distortion are identified in either sarah ast to suggest malignancy. There has been no suspicious interval change. IMPRESSION: No mammographic evidence of malignancy. Recommend routine screening mammography in one year. BI-RADS Category 1: Negative Reviewed, dictated and finalized at location . PER DIEM
== END 2024-11-21 11:26 | disposition home or self-care (01) ==
LOC: MICIMG 11:26
PROVIDERS: PCP Family Medicine; Visit Provider Nurse Practitioner Family
DX: Z12.31 Encounter for screening mammogram for malignant neoplasm of breast (principal)
CPT/HCPCS: 77063; 77067

== ENCOUNTER 2025-01-20 10:22 | Outpatient (CLI) | payer MEDICARE, SELFPAY ==
[2025-01-20 14:00] LABS: Basophils Percent Auto 0.7 % (0.2-1.2); Eosinophils Absolute Auto 0.1 K/mm3 (0-0.3); Eosinophils Percent Auto 2.4 % (0-4.4); Hematocrit 39.5 % (37.0-47.0); Hemoglobin 12.7 g/dL (12.0-15.0); Immature Granulocyte Absolute 0.04 K/mm3 (0.00-0.031); Immature Granulocyte Percent A 0.7 % (0-0.5); Lymphocytes Absolute Auto 1.97 K/mm3 (0.9-3.2); Lymphocytes Percent Auto 35.9 % (18.3-44.2); Mean Corpuscular HGB Conc 32.2 g/dl (32-36); Mean Corpuscular Hemoglobin 28.5 pg (26-34); Mean Corpuscular Volume 88.8 fl (80-100); Monocytes Absolute Auto 0.6 K/mm3 (0.1-0.6); Monocytes Percent Auto 10.2 % (2.6-8.5); Neutrophils Absolute Auto 2.7 K/mm3 (1.3-6.7); Neutrophils Percent Auto 50.1 % (45.5-73.1); Platelet Count Result 289 k/mm3 (150-375); Red Blood Count 4.45 M/mm3 (4.2-5.4); Red Cell Distribution Width 13.3 % (11.5-14.5); White Blood Count 5.5 K/mm3 (4.5-10.0)
[2025-01-20 18:17] LABS: Hemoglobin A1C 5.9 % (<5.7)
[2025-01-20 19:43] LABS: Alanine Aminotransferase 16 U/L (6-35); Albumin Level 4.5 g/dL (3.5-5.1); Alkaline Phosphatase 69 U/L (38-126); Anion Gap 9 mmol/L (4-12); Aspartate Amino Transferase 38 U/L (14-36); Bilirubin,Total 0.6 mg/dL (0.2-1.3); Blood Urea Nitrogen 17 mg/dL (7-17); Calcium 9.7 mg/dL (8.4-10.2); Carbon Dioxide 25 mmol/L (22-30); Chloride 105 mmol/L (98-107); Cholesterol 188 mg/dL (0-200); Estimated Glomerular Filt Rate > 60; Glucose 99 mg/dL (65-110); HDL Direct 43 mg/dL; Potassium 4.2 mmol/L (3.4-5.0); Sodium 139 mmol/L (137-145); Triglycerides 229 mg/dL (<150)
[2025-01-20 19:49] LABS: LDL Cholesterol Direct 80 mg/dL
== END 2025-01-20 10:23 | disposition home or self-care (01) ==
LOC: ANHGOSHLAB 10:23
PROVIDERS: PCP Family Medicine; Visit Provider Nurse Practitioner Family
DX: M85.80 Other specified disorders of bone density and structure, unspecified site (principal); E55.9 Vitamin D deficiency, unspecified; E03.9 Hypothyroidism, unspecified; E78.5 Hyperlipidemia, unspecified; R73.03 Prediabetes; Z13.29 Encounter for screening for other suspected endocrine disorder
CPT/HCPCS: 36415; 80053; 80061; 82607; 82652; 83036; 84443; 85025

== ENCOUNTER 2025-09-29 10:00 | Outpatient (CLI) | payer MEDICARE, SELFPAY ==
--- OUTSIDE RECORDS SUMMARY | 2010-08-31 18:00 | XMS_ITS | Continuity of Care Document ---
Author Organization [facility] Address [id number] [place] [address] [place] [address] Phone Care Team Providers Care It Security Manager Name Role Phone Optical [facility] Unavailable Unavail able Procedures Procedure Date Vision Svcs Frames Purchases BF PolyCarb Sph +/-4.12 - 7d Polycarb Lens Per Lens Frames Deluxe Post-op Follow-up Visit Refraction Post-op Follow-up Visit Remove Cataract, Insert Lens PreOp Assessment Performed Office/outpatient Visit, Est [facility]Professional Post-op Follow-up Visit Refraction Post-op Follow-up Visit Remove Cataract, Insert Lens PreOp Assessment Performed Office/outpatient Visit, Est [facility] Eye Exam & Treatment No Script Advance Directives Directive Yes / No Effective Date File Name No Information Encounters Encounter Description Practice Location Reason(s) For Visit Diagnoses Date Provider Providers Copied on Encounter [facility], [address], [place], [place], [id number], [place] tel:[phone] [facility] No Information Oct-1 3-201 0 Optical [facility] . [address] [facility] [facility], [address], [place], [place], [id number], [place]. tel:[phone] Referring Provider: Edgar Enamorado, [address], [place], [address]. tel:[phone] [facility], [address] [place] [address] [address], [place], [place], [id number], [place] tel:[phone] [facility] No Information Sep-3 0-201 0 Wallace OD Blue. [address] , [address], [place], [place], [facility], [place]. tel:[phone] [facility], [address] [place] [address] [address], [place], [place], [id number], [place] tel:[phone] [facility] No Information Sep-1 5-201 0 Silvino Hernández. [facility] , [address], [place], [place], [facility], [place]. tel:[phone] [facility], [address] [place] [address] [address], [place], [place], [id number], [place] tel:[phone] [facility] No Information Sep-1 4-201 0 Silvino Hernández. [address] [place] [address] , [address], [place], [address], [place]. tel:[phone] Referring Provider: Blue Enamorado, [facility] [address], [place], [address]. tel:[phone] Office/outpat ient Visit, Est [facility], [address] [place] [address] [address], [place], [place], [id number], [place] tel:[phone] [facility] No Information Sep-0 8-201 0 Silvino Hernández. [address], [address], [place], [address], [place]. tel:[phone] Referring Provider: Edgar Enamorado, [address], [place], [place], [facility]. tel:[phone] [facility], [address] [place] [address] [address], [place], [place], [address], [place] tel:[phone] [facility] No Information Apr-2 1-201 0 Doisy Edward. [address] , [address], [place], [facility], [place]. tel:[phone] Referring Provider: Blue Wallace OD A, [address], [place], [facility]. tel:[phone] [facility], [address] [place] [address] [address], [place], [place], [id number], [place] tel:[phone] [facility] No Information Apr-0 9-201 0 Wallace OD Blue. [address] , [address], [place], [facility], [place]. tel:[phone] [facility], [address] [place] [address] [address], [place], [place], [id number], [place] tel:[phone] [facility] No Information Apr-0 8-201 0 Doisy Edward. [facility] , [address], [place], [facility], [place]. tel:[phone] Referring Provider: Blue Wallace OD A, [address], [place], [facility]. tel:[phone] Office/outpat ient Visit, [facility], [address] [place] [address] [address], [place], [place], [id number], [place] tel:[phone] [facility] No Information Apr-0 6-201 0 Doisy Edward. [address] [facility] , [address], [place], [facility], [place]. tel:[phone] Referring Provider: Blue Wallace OD A, [address], [place], [facility]. tel:[phone] [facility], [address], [place], [place], [id number], [place] tel:[phone] [facility] No Information 4-200 9 Wallace OD Blue. [address] , [address], [place], [address], [place]. tel:[phone] Family History Family Member Type Diagnosis Age At Onset No Information Payers Payer name Insurance type Covered democrat ID Authortitus leiva(s) [employer] CI [id number] Social History Type Description Quantity Date Captured Comments Sex Female Smoking Status No Information Chief Complaint And Reason For Visit No Information Reason For Referral Reason For Referral No Information History Of Present Illness Encounter Date Complaint History Of Prese nt Illness No Information Functional Status Date Functional Assessmen t No Information Instructions Date Instruction Additional Infor mation No Information Assessments Type Assessment Date No Information Patient Care Teams Name Effective Dates (start - stop) Status Members No Information
--- OUTSIDE RECORDS SUMMARY | 2025-09-29 09:15 | XMS_ITS | Encounter Summary ---
Author Organization [facility] Healthcare Address [address] [place] [address] Care Team Providers Care Collet Making Machine Operator Name Role Phone Areli Dorantes MD Primary Care Provider Reason for Visit * Reason Comments Paroxysmal atrial fibrillation 6m fu Encounter Details Date Type Department Care Team (Late st Contact Info) Description 09/29/2025 9:15 AM IMAGING NURSE Office Visit [facility] Cardiology at [address] [place] [address] Connor Evans MD [address] [address] Atypical atrial flutter (HCC) (Primary Dx); Paroxysmal atrial fibrillation (HCC) Social History Tobacco Use Types Packs/Day Years Used Date Smoking Tobacco: Never Smokeless Tobacco: Never Comments Unknown Sex and Gender Information Value Date Recorded Sex Assigned at Not on file Legal Sex Female 10:21 PM IMAGING NURSE Gender Identity Not on file Sexual Orientation Not on file documented as of this encounter Last Filed Vital Signs Vital Sign Reading Time Taken Comments Blood Pressure 138/60 09/29/2025 9:17 AM IMAGING NURSE Pulse 74 09/29/2025 9:17 AM IMAGING NURSE Temperature - - Respiratory Rate - - Oxygen Saturation 98% 09/29/2025 9:17 AM IMAGING NURSE Inhaled Oxygen Concentration - - Weight 67.1 kg (148 lb) 09/29/2025 9:17 AM IMAGING NURSE Height 157.5 cm (5' 2) 09/29/2025 9:17 AM IMAGING NURSE Body Mass Index 27.07 09/29/2025 9:17 AM IMAGING NURSE documented in this encounter Functional Status * BP Location Answer Date of Assessment Author Left arm 09/29/2025 9:17 AM IMAGING NURSE Ana Stafford MA * BP Location Answer Date of Assessment Author Left arm 09/29/2025 9:17 AM IMAGING NURSE Ana Stafford MA documented as of this encounter Progress Notes * Connor Evans MD - 09/29/2025 9:15 AM CST [facility] FOLLOW UP 09/29/2025 Mariama Reina is a 85 y.o. female who presents for follow up of intermittent atrial fibrillation. This is a patient who had no prior cardiac diagnosis and was seen by her primary care physician in November of 2023 and found in the office to be in atrial fibrillation with controlled heart rate and she was asymptomatic of this. She was sent to the emergency room and while under observation she spontaneously converted to sinus rhythm. She was started on apixaban and a modest dose of metoprolol and referred to see me in consultation. I saw the patient in December of 2023 she was doing well at that time. An echocardiogram and a Holter monitor were requested. Her echocardiogram looks essentially unremarkable she has an ejection fraction of 55% with mild mitral valve regurgitation. Her 48 hour Holter demonstrated sinus rhythm with paroxysmal AFib with AF burden of 1%. She did have some short conversion pauses which were asymptomatic She returns to the office today for a scheduled six-month appointment. She is doing well and has nocardiovascular complaints or concerns she has no difficulty tolerating anticoagulation there have not been any significant hemorrhages since being on apixaban. REVIEW OF SYSTEMS General ROS: negative for - chills, fatigue, fever, malaise, night sweats, weight gain or weight loss Psychological ROS: negative for - anxiety, depression, memory difficulties or sleep disturbances Ophthalmic ROS: negative for - blurry vision, decreased vision, loss of vision or scotomata ENT ROS: negative for - epistaxis, headaches, hearing change, nasal congestion, nasal discharge, sore throat, vertigo or visual changes Hematological and Lymphatic ROS: negative for - bleeding problems, blood clots, bruising, fatigue or weight loss Endocrine ROS: negative for - hot flashes, palpitations, polydipsia/polyuria or unexpected weight changes Respiratory ROS: negative for - cough, hemoptysis, orthopnea, shortness of breath, tachypnea or wheezing Cardiovascular ROS: negative for - chest pain, dyspnea on exertion, edema, irregular heartbeat, loss of consciousness, murmur, orthopnea, palpitations, paroxysmal nocturnal dyspnea, rapid heart rate or shortness of breath Gastrointestinal ROS: negative for - abdominal pain, appetite loss, blood in stools, constipation, diarrhea, gas/bloating, heartburn, hematemesis, melena or nausea/vomiting Genito-Urinary ROS: negative for - dysuria, or hematuria Musculoskeletal ROS: negative for - joint pain, muscle pain or muscular weakness Dermatological ROS: negative for dry skin, eczema, pruritus and rash HOME MEDICATIONS Current Outpatient Medications: apixaban (ELIQUIS) 5 mg tablet, Take 1 tablet (5 mg total) by mouth 2 (two) times a day, Disp: 180 tablet, Rfl: 3 calcium citrate 250 mg calcium tablet tablet, Take 4 tablets (1,000 mg total) by mouth, Disp: , Rfl: cholecalciferol, vitamin D3, (D3-2000 ORAL), Take by mouth, Disp: , Rfl: hydrOXYzine (ATARAX) 25 mg tablet, Take 1 tablet (25 mg total) by mouth 3 (three) times a day as needed for itching, Disp: , Rfl: levothyroxine (SYNTHROID) 50 mcg tablet, Take 1 tablet (50 mcg total) by mouth 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 apprentice 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, Disp: , Rfl: loratadine (CLARITIN) 10 mg tablet, Take 1 tablet (10 mg total) by mouth daily, Disp: , Rfl: metoprolol XL (TOPROL-XL) 25 mg extended release tablet, TAKE 1 TABLET(25 MG) BY MOUTH DAILY, Disp:90 tablet, Rfl: 2 simvastatin (ZOCOR) 80 mg tablet, Take 1 tablet (80 mg total) by mouth nightly, Disp: , Rfl: LABS AND OTHER DIAGNOSTIC TESTS No results found for: CHOL No results found for: HDL No results found for: LDLCALC No results found for: TRIG No results found for: CHOLHDL No results found for: WBC, HGB, HCT, MCV, PLT No lab exists for component: LABALBU PHYSICAL EXAM Vitals BP 138/60 (BP Location: Left arm, Patient Position: Sitting) Pulse 74 Ht 157.5 cm (5' 2) Wt 67.1 kg (148 lb) SpO2 98% BMI 27.07 kg/m?? Physical Examination: General appearance - alert, well appearing, and in no distress, oriented to person, place, and time and acyanotic, in no respiratory distress Mental status - affect appropriate to mood Eyes - extraocular eye movements intact, sclera anicteric, no pallor Ears - external earsappear normal, hearing grossly normal bilaterally Nose - normal and patent, no erythema or discharge Mouth - mucous membranes moist, pharynx appears normal, dental hygiene good and tongue normal Neck - supple, no significant neck masses, carotids upstroke normal bilaterally, no bruits, no JVD Chest - clear to auscultation, no wheezes, rales or rhonchi, symmetric air entry, no tachypnea, retractions or cyanosis Heart - normal rate, regular rhythm, normal S1, S2, no murmurs, rubs, clicks or gallops, no JVD Abdomen - soft, nontender, nondistended, no masses or organomegaly bowel sounds normal Neurological - alert, oriented, normal speech, no focal findings or movement disorder noted Musculoskeletal - no joint tenderness, deformity or swelling, no muscular tenderness noted Extremities - peripheral pulses normal, no pedal edema, no clubbing or cyanosis Skin - normal coloration and turgor, no rashes, no suspicious skin lesions noted ASSESSMENT Mariama was seen today for paroxysmal atrial fibrillation. Diagnoses and all orders for this visit: Atypical atrial flutter (HCC) Paroxysmal atrial fibrillation (HCC) PLAN/RECOMMENDATIONS Continue modest dose of metoprolol and systemic anticoagulation. Six-month appointment or PRN Connor Evans MD ING NURSE documented in this encounter Plan of Treatment Not on file documented as of this encounter Visit Diagnoses Diagnosis Atypical atrial flutter (HCC)- Primary Paroxysmal atrial fibrillation (HCC) Atrial fibrillation documented in this encounter Care Teams Collet Making Machine Operator Relationship Specialty Start Date End Date Areli Dorantes MD [address] [facility] [address] [address] PCP - General Family Practice 12/27/23 documented as of this encounter
--- OUTSIDE RECORDS SUMMARY | 2025-09-29 10:41 | XMS_ITS | Clinical Summary ---
Author Organization [facility] [address] Address [facility] [place] [address] Care Team Providers Care Strap Buckler Machine Name Role Phone Areli Dorantes MD Primary Care Provider Allergies No known active allergies Medications calcium citrate 250 mg calcium tablet tablet Take 4 tablets (1,000 mg total) by mouth Active cholecalciferol, vitamin D3, (D3-2000 ORAL) Take by mouth A ctive loratadine (CLARITIN) 10 mg tablet Take 1 tablet (10 mg total) by mouth daily Active simvastatin (ZOCOR) 80 mg tablet Take 1 tablet (80 mg total) by mouth nightly Active levothyroxine (SYNTHROID) 50 mcg tablet Take 1 tablet (50 mcg total) by mouth gui developer before breakfast Active hydrOXYzine (ATARAX) 25 mg tablet Take 1 tablet (25 mg total) by mouth 3 (three) times a day as needed for itching Active apixaban (ELIQUIS) 5 mg tabletIndications :atrial fibrillation Take 1 tablet (5 mg total) by mouth 2 (two) times a day 180 tablet 3 5 Active metoprolol XL (TOPROL-XL) 25 mg extended release tablet TAKE 1 TABLET(25 MG) BY MOUTH DAILY 90 tablet 2 5 Active Active Problems Problem Noted Date Diagnosed Date Atrial flutter 12/27/2023 Atrial fibrillation 12/27/2023 Other thrombophilia 12/27/2023 Encounters Date Type Department Care Team Description 09/29/2025 9:15 AM AUTOMATIC CAR WASH ATTENDANT Office Visit [facility] Medical [facility] Cardiology at [address] [place] [address] Connor Evans MD Atypical atrial flutter (HCC) (Primary Dx); Paroxysmal atrial fibrillation (HCC) from Last 3 Months Surgical History Surgery Date Site/Laterality Comments HYSTERECTOMY REPLACEMENT TOTAL KNEE 11/20/2016 - 11/19/2017 Right WISDOM TOOTH EXTRACTION 11/20/1966 - 11/19/1967 Medical History Medical History Date Comments Atrial fibrillation (HCC) Environmental allergies Thyroid disease Dyslipidemia Vitamin D deficiency Family History Medical History Relation Name Comments Leukemia Mother Relation Name Status Comments Father Mother Social History Tobacco Use Types Packs/Day Years Used Date Smoking Tobacco: Never Smokeless Tobacco: Never Tobacco Cessation:Counseling Given: Not Answered Comments Unknown Sex and Gender Information Value Date Recorded Sex Assigned at Not on file Legal Sex Female 10:21 PM AUTOMATIC CAR WASH ATTENDANT Gender Identity Not on file Sexual Orientation Not on file Last Filed Vital Signs Vital Sign Reading Time Taken Comments Blood Pressure 138/60 09/29/2025 9:17 AM AUTOMATIC CAR WASH ATTENDANT Pulse 74 09/29/2025 9:17 AM AUTOMATIC CAR WASH ATTENDANT Temperature - - Respiratory Rate 16 09/16/2024 8:49 AM CDT Oxygen Saturation 98% 09/29/2025 9:17 AM AUTOMATIC CAR WASH ATTENDANT Inhaled Oxygen Concentration - - Weight 67.1 kg (148 lb) 09/29/2025 9:17 AM AUTOMATIC CAR WASH ATTENDANT Height 157.5 cm (5' 2) 09/29/2025 9:17 AM AUTOMATIC CAR WASH ATTENDANT Body Mass Index 27.07 09/29/2025 9:17 AM AUTOMATIC CAR WASH ATTENDANT Plan of Treatment Health Maintenance Due Date Last Done Comments Depression Screening 1942 Fall Risk Assessment 1940 Osteoporosis Screening-Bone Density Scan 1942 Hepatitis B Screening 1960 Well Visit 65+ 2007 DTaP/Tdap/Td Vaccine (2 - Td or Tdap) 04/01/2025 04/01/2015 Covid-19 Vaccine (6 - 2024-2 6 season) 2025 09/01/2023, 08/12/2022, 10/01/2021, Additional history exists Influenza Vaccine (#1) 2025 3, 08/12/2022, 08/03/2021, Additional history exists Pneumococcal vaccine 65+ Completed 12/11/2022 Zoster Vaccine Completed 01/20/2023, 06/06/2022 Insurance MEDICARE CIG MEDICARE SUPPLEMENT INSURANCE Care Teams Strap Buckler Machine Relationship Specialty Start Date End Date Areli Dorantes MD [facility] [address] [place] [id number] PCP - General Family Practice 12/27/23
--- OUTSIDE RECORDS SUMMARY | 2025-09-29 10:41 | XMS_ITS | Clinical Summary ---
Author Organization [facility] Address [address] [place] [address] Care Team Providers Care Ski Binding Fitter And Repairer Name Role Phone Danelle, Enzo Kilpatrick DO Unavailable Areli Dorantes MD Primary Care Provider Source Comments [facility],non-owned Affiliates and Associated Physician Practices is amultiple site organization consisting of ambulatory clinics and hospital sitesin [place], [place], [place] and [place]. This disclosure is being madepursuant to the Care Everywhere program and may not contain all information available regarding this patient. Last updated 18.[facility] Allergies No known active allergies Medications * Be aware that medications may not be up to date on this document. Alwaysverify current medications with the patient. simvastatin (ZOCOR) 80 MG tablet TK 1 T PO QD 3 7 Active levothyroxine (SYNTHROID) 25 MCG tablet Take 1 1/2 tablets daily 0 7 Active raloxifene (EVISTA) 60 MG tablet TK 1 T PO QD 0 7 Active Cholecalciferol (VITAMIN D3) 2000 UNITS Take by mouth once daily Active Multiple Vitamin (MULTI VITAMIN DAILY PO) Take by mouth once daily To stop 10 days prior to surgery Active HYDROcodone-rigoberto taminophen (NORCO) 7.5-325 MG tablet Take 1 Tab by mouth every 4 hours as needed for Pain 50 Tab 7 Active Additional Information Patient not taking.Reported on 06/13/2017 HYDROcodone-rigoberto taminophen (NORCO) 5-325 MG tablet Take 1 Tab by mouth every 4 hours as needed for Pain 25 Tab 7 Active Additional Information Patient not taking.Reported on 06/13/2017 levothyroxine (SYNTHROID) 50 MCG tablet TK 1 T PO QAM 0 8 Active levoFLOXacin (LEVAQUIN) 500 MG tablet TAKE 1 TABLET BY MOUTH DAILY STARTING 2 DAYS PRIOR TO DENTAL APPOINTMENT AND ENDING 2 DAYS AFTER DENTAL WORK 5 tablet 9 Active Active Problems Problem Noted Date Diagnosed Date History of total right knee replacement on 04/14/2017 Immunizations Immunization Administration Dates Next Due INFLUENZA VACCINE, HIGH-DOSE , QUADR. (FLUZONE HIGH-DOSE QUADRIVALENT; 65Y+), 0.7 ML (HD-IIV4) 08/28/2020 Social History Tobacco Use Types Packs/Day Years Used Date Smoking Tobacco: Never Smokeless Tobacco: Never Tobacco Cessation:Counseling Given: No Alcohol Use Standard Drinks/Week Comments Never 0 (1 standard drink = 0.6 oz pur e alcohol) on occ AUDIT-C Answer Date Recorded Q1: How often do you have a drink containing alc ohol? Never 12/17/2020 Average Number of Drinks Not on file 021 Frequency of Binge Drinking Not on file 11/21 Comments No Sex and Gender Information Value Date Recorded Sex Assigned at Not on file Legal Sex Female 10:36 AM CDT Gender Identity Not on file Sexual Orientation Not on file Last Filed Vital Signs Vital Sign Reading Time Taken Comments Blood Pressure 107/56 04/08/2017 8:23 AM CDT Pulse 83 04/08/2017 8:23 AM CDT Temperature 36.6 C (97.9 F) 04/08/2017 8:23 AM CDT Respiratory Rate 16 04/08/2017 8:23 AM CDT Oxygen Saturation 99% 04/08/2017 8:23 AM CDT Inhaled Oxygen Concentration - - Weight 63.5 kg (140 lb) 12/17/2020 1:39 PM OVERLOCK WAISTLINE JOINER Height 162.6 cm (5' 4) 12/17/2020 1:39 PM OVERLOCK WAISTLINE JOINER Body Mass Index 24.03 12/17/2020 1:39 PM OVERLOCK WAISTLINE JOINER Plan of Treatment Health Maintenance Due Date Last Done Comments BONE DENSITY TESTING 1942 DTAP/TDAP/TD VACCINES (1 - Tdap) 1961 PNEUMOCOCCAL VACCINE 50+ (1 of 1 - PCV) 1992 ZOSTER VACCINE (1 of 2) 1992 Respiratory Syncytial Virus (RSV) Vaccine Pt: or over 60 yrs (1 - 1-dose 75+ series) 2017 DEPRESSION SCREENING 11/20/2024 COVID-19 VACCINE (1 - 2023-2 5 season) 2025 INFLUENZA VACCINE (#1) 2025 08/28/2020 HEPATITIS B VACCINE Aged Out No longe r eligible based on patient's age to complete this topic HIB VACCINE Aged Out No longer eligi ble based on patient's age to complete this topic HPV VACCINE Aged Out No longer eligi ble based on patient's age to complete this topic MENINGOCOCCAL (Group B) VACC INE SHARED DECISION-MAKING Aged Out No longer eligibl e based on patient's age to complete this topic MENINGOCOCCAL GROUPS A/C/Y/W VACCINE Aged Out No longer eligible b ased on patient's age to complete this topic Medical Devices Implanted Type Area 911 Emergency Dispatcher Device Identifier Shelf Expiration Date Model / Serial / Lot Cmnt Bone Co Hv 40gm Implanted:Qty: 1 on 04/05/2017 by Enzo Mcclendon DO at [facility] Right: Knee [employer] 06/19/2018 [id number] / / [id number] Cmpnt Ptlr 37mm 1 Pg Wire Ascnt Arcm Kn Implanted:Qty: 1 on 04/05/2017 by Enzo Mcclendon DO at [facility] Right: Knee [employer] 12/24/2021 [id number] / / [id number] Agc V2 Total Knee Implanted:Qty: 1 on 04/05/2017 by Enzo Mcclendon DO at [facility] Right: Knee 02/17/2024 [id number] / / [id number] Tray Tib 75mm Kn Cocr I Beam Implanted:Qty: 1 on 04/05/2017 by Enzo Mcclendon DO at [facility] Right: Knee [employer] 02/18/2027 [id number] / / [id number] Primary Tibial Bearing Implanted:Qty: 1 on 04/05/2017 by Enzo Mcclendon DO at [facility] Right: Knee 09/17/2021 [id number] / / [id number] Insurance MEDICARE [employer] GENERIC Advance Directives Documents on File Type Date Recorded Patient Scrub Tech Expl anation Adv Directive/Living Will/POA 04/11/2017 10:27 PM * Full Code (Latest Code Status on File) Date Activated Date Inactivated Comments 04/05/2017 3:24 PM 04/08/2017 3:45 PM Care Teams Ski Binding Fitter And Repairer Relationship Specialty Start Date End Date Areli Dorantes MD [address] [place] [address] PCP - General Family Medicine 12/21/20 Enzo Mcclendon DO Orthopedic Surgery 03/23/17
--- OUTSIDE RECORDS SUMMARY | 2025-09-29 10:41 | XMS_ITS | Encounter Summary ---
Author Organization [facility] Address [address] [place] [address] Care Team Providers Care Non Destructive Testing Supervisor Name Role Phone Enzo Mcclendon DO Unavailable Thierry Carranza MD Primary Care Provider [phone] Areli Dorantes MD Primary Care Provider Encounter Details Date Type Department Care Team (Late st Contact Info) Description 03/30/2017 SS Outpatient Visit EXTERNAL NON-[facility] [place] [address] [address] Social History Tobacco Use Types Packs/Day Years Used Date Smoking Tobacco: Never Comments No Sex and Gender Information Value Date Recorded Sex Assigned at Not on file Legal Sex Female 10:36 AM CDT Gender Identity Not on file Sexual Orientation Not on file documented as of this encounter Plan of Treatment Not on file documented as of this encounter Visit Diagnoses Not on filedocumented in this encounter Care Teams Non Destructive Testing Supervisor Relationship Specialty Start Date End Date Thierry Carranza MD [address] [place] [phone] PCP - General Family Medicine 03/23/17 12/20/20 Areli Dorantes MD [address] [place] [phone] PCP - General Family Medicine 12/21/20 Enzo Mcclendon DO Orthopedic Surgery 03/23/17 documented as of this encounter
[2025-09-29 12:58] LABS: Hematocrit 38.6 % (37.0-47.0); Hemoglobin 12.2 g/dL (12.0-15.0); Immature Granulocyte Percent A 0.6 % (0-0.5); Lymphocytes Absolute Auto 1.84 K/mm3 (0.9-3.2); Mean Corpuscular HGB Conc 31.6 g/dl (32-36); Mean Corpuscular Hemoglobin 28.9 pg (26-34); Mean Corpuscular Volume 91.5 fl (80-100); Nucleated Red Blood Cells Absolute Auto 0.000 K/mm3 (0.0-0.012); Nucleated Red Blood Cells Perc 0.0 % (0.0-0.2); Platelet Count Result 337 k/mm3 (150-375); Red Blood Count 4.22 M/mm3 (4.2-5.4); White Blood Count 5.4 K/mm3 (4.5-10.0)
[2025-09-29 13:04] LABS: Alanine Aminotransferase 15 U/L (6-35); Albumin Level 4.7 g/dL (3.5-5.1); Alkaline Phosphatase 67 U/L (38-126); Anion Gap 8 mmol/L (4-12); Aspartate Amino Transferase 45 U/L (14-36); Bilirubin,Total 0.6 mg/dL (0.2-1.3); Blood Urea Nitrogen 19 mg/dL (7-17); Calcium 9.9 mg/dL (8.4-10.2); Carbon Dioxide 25 mmol/L (22-30); Chloride 103 mmol/L (98-107); Cholesterol 190 mg/dL (0-200); Estimated Glomerular Filt Rate > 60; Glucose 105 mg/dL (65-110); HDL Direct 47 mg/dL; Potassium 4.8 mmol/L (3.4-5.0); Sodium 136 mmol/L (137-145); Total Protein 7.9 g/dL (6.3-8.2); Triglycerides 172 mg/dL (<150)
[2025-09-29 13:23] LABS: Free T4 Free Thyroxine 1.25 ng/dL (0.78-2.19)
[2025-09-29 13:32] LABS: Hemoglobin A1C 6.0 % (<5.7)
[2025-09-29 13:40] LABS: Thyroid Stimulating Hormone 2.170 uIU/mL (0.465-4.680)
== END 2025-09-29 10:01 | disposition home or self-care (01) ==
LOC: ANHGOSHLAB 10:01
PROVIDERS: PCP Family Medicine; Visit Provider Nurse Practitioner Family
DX: E78.5 Hyperlipidemia, unspecified (principal); I10 Essential (primary) hypertension; R73.03 Prediabetes; E03.9 Hypothyroidism, unspecified; E55.9 Vitamin D deficiency, unspecified
CPT/HCPCS: 36415; 80053; 80061; 82306; 83036; 84439; 84443; 85025

== ENCOUNTER 2025-10-07 10:55 | Outpatient (CLI) | payer MEDICARE, SELFPAY ==
--- NOTE | ~2025-10-07 | CT_ITS ---
EXAMINATION: CT abdomen pelvis w con DATE: 10/07/2025 11:26 INDICATION: Right lower quadrant abdominal pain TECHNIQUE: Computed tomography (CT) of the abdomen and pelvis was performed with 100 mL Omnipaque-350 intravenous contrast. Automated exposure control and iterative reconstruction technique were employed. The dose-length product was 455.25 mGy-cm. COMPARISON: None FINDINGS: Linear discoid atelectasis in the left lower and right middle lobes. There is compressive atelectasis in the medial right lower lobe along side a large sliding-type hiatal hernia. Heart size is normal. No pericardial or pleural effusion. There are several scattered low-attenuation hepatic cysts the largest measuring 3.0 cm the right hepatic lobe. Gallbladder, spleen, pancreas, bilateral adrenal glands and kidneys are normal. The common bile duct is dilated to 10-11 mm without evident obstructing stones or mass. No intrahepatic ductal or ductal dilation. There is mild scattered colonic diverticulosis. There is short segment of wall thickening and surrounding inflammatory stranding at the mid sigmoid colon suspicious for diverticulitis. No bowel obstruction. The appendix is not visualized. No pericecal inflammatory change to suggest acute appendicitis. Bladder is normal. The uterus is not identified and has likely been surgically resected. Trace amount of likely reactive free fluid in the deep pelvis. No abscess or free intraperitoneal gas. No pathologically enlarged abdominal or pelvic lymphadenopathy. Thoracolumbar dextroscoliosis with severe spondylosis. IMPRESSION: 1. Radiographic uncomplicated sigmoid diverticulitis. 2. Nonspecific dilation of the common bile duct to 10-11 mm without evident obstructing stone or mass or intrahepatic biliary ductal dilation. Correlate with liver function tests and if clinically indicated could consider MRCP for further evaluation. 3. Large sliding-type hiatal hernia. Reviewed, dictated and finalized at location A. [facility] IMPRESSION: 1. Radiographic uncomplicated sigmoid diverticulitis. 2. Nonspecific dilation of the common bile duct to 10-11 mm without evident obs tructing stone or mass or intrahepatic biliary ductal dilation. Correlate with liver function tests and if clinically indicated could consider MRCP for furthe r evaluation. 3. Large sliding-type hiatal hernia.
[2025-10-07 12:24] LABS: Hematocrit 32.3 % (37.0-47.0); Hemoglobin 10.6 g/dL (12.0-15.0); Immature Granulocyte Percent A 0.7 % (0-0.5); Lymphocytes Absolute Auto 1.51 K/mm3 (0.9-3.2); Mean Corpuscular HGB Conc 32.8 g/dl (32-36); Mean Corpuscular Hemoglobin 28.7 pg (26-34); Mean Corpuscular Volume 87.5 fl (80-100); Nucleated Red Blood Cells Absolute Auto 0.000 K/mm3 (0.0-0.012); Nucleated Red Blood Cells Perc 0.0 % (0.0-0.2); Platelet Count Result 300 k/mm3 (150-375); Red Blood Count 3.69 M/mm3 (4.2-5.4); White Blood Count 7.3 K/mm3 (4.5-10.0)
[2025-10-07 12:40] LABS: Alanine Aminotransferase 13 U/L (6-35); Albumin Level 4.1 g/dL (3.5-5.1); Alkaline Phosphatase 73 U/L (38-126); Anion Gap 9 mmol/L (4-12); Aspartate Amino Transferase 27 U/L (14-36); Bilirubin,Total 0.7 mg/dL (0.2-1.3); Blood Urea Nitrogen 14 mg/dL (7-17); Calcium 9.3 mg/dL (8.4-10.2); Carbon Dioxide 22 mmol/L (22-30); Chloride 100 mmol/L (98-107); Estimated Glomerular Filt Rate > 60; Glucose 101 mg/dL (65-110); Potassium 4.1 mmol/L (3.4-5.0); Sodium 131 mmol/L (137-145); Total Protein 7.5 g/dL (6.3-8.2)
== END 2025-10-07 10:56 | disposition home or self-care (01) ==
PROVIDERS: PCP Nurse Practitioner Family; Visit Provider Nurse Practitioner Family
DX: R10.31 Right lower quadrant pain (principal)
CPT/HCPCS: 36415; 74177; 80053; 85025; Q9967